=== PATIENT | female | born 1955 | race Caucasian/White ===

== ENCOUNTER 2020-10-26 13:54 | Emergency (ER) | payer OTHER ==
[2020-10-26 14:57] LABS: HEMOGLOBIN 13.2 gm/dl (12.3-15.3); RED BLOOD COUNT 4.11 M/UL (4.00-5.10); WHITE BLOOD COUNT 13.9 K/UL (4.5-11.0)
[2020-10-26 15:21] LABS: BUN/CREATININE RATIO 12 (0-10)
[2020-10-26] MEDS ORDERED: CEFUROXIME500 MG PO (16:23)
[2020-10-26] MEDS ORDERED: VENTOLIN HFA 66.7 GM INH (16:23)
[2020-10-26] MEDS ORDERED: MEDROL4 MG PO (16:23)
[2020-10-26] MEDS ORDERED: ZITHROMAX250 MG PO (16:23)
== END 2020-10-26 17:35 | disposition home or self-care (01) ==
LOC: ER1 13:54
PROVIDERS: Preventive Medicine Occupational Medicine
DX: J12.9 Viral pneumonia, unspecified (principal); Z20.822 Contact with and (suspected) exposure to COVID-19; I10 Essential (primary) hypertension; F17.210 Nicotine dependence, cigarettes, uncomplicated; E07.9 Disorder of thyroid, unspecified
CPT/HCPCS: 0240U; 36600; 71045; 80053; 81001; 82550; 82553; 82803; 83605; 83690; 83874; 83880; 84484; 85025; 86140; 87086; 94664; 94760; 96374; 96375; 99285; J0456; J2405

== ENCOUNTER 2021-05-31 10:00 | Emergency (ER) | payer OTHER ==
[~2021-05-31 10:00] MED LIST: CEFUROXIME500 MG PO; MEDROL4 MG PO; VENTOLIN HFA 66.7 GM INH; ZITHROMAX250 MG PO
[2021-05-31 10:54] LABS: RED BLOOD COUNT 4.04 M/UL (4.00-5.10); WHITE BLOOD COUNT 8.4 K/UL (4.5-11.0)
== END 2021-05-31 13:08 | disposition home or self-care (01) ==
LOC: ER1 10:00
PROVIDERS: Nurse Practitioner
DX: R10.2 Pelvic and perineal pain (principal); I11.0 Hypertensive heart disease with heart failure; I50.9 Heart failure, unspecified; F17.210 Nicotine dependence, cigarettes, uncomplicated; R10.814 Left lower quadrant abdominal tenderness
CPT/HCPCS: 80053; 81001; 85025; 87086; 99284; Q9967